=== PATIENT | male | born 1970 | race African-American/Black ===

== ENCOUNTER 2024-06-02 10:33 | Emergency (ER) | payer MEDICAID ==
[~2024-06-02] VITALS: Ht 172.7 cm; Wt 80.0 kg
[2024-06-02 10:46] VITALS: O2SAT 100
[2024-06-02] MEDS: KETOROLAC 30MG/ML VIAL IM ONE (12:13)
[2024-06-02] MEDS ORDERED: IBUP-2029 MT (14:24)
[2024-06-02 15:20] VITALS: BP 134/85; PULSE 76; RESP 18; TEMP 98.3
== END 2024-06-02 15:29 | disposition home or self-care (01) ==
LOC: ER 10:33
DX: M25.512 Pain in left shoulder (principal)
CPT/HCPCS: 99283; 73030; 96372; J1885; A4565